=== PATIENT | female | born 1985 | race Caucasian/White ===

== ENCOUNTER 2018-07-21 17:44 | Inpatient (IN) | payer BC ==
[2018-07-21 18:16] VITALS: BMI 27.3
[2018-07-21] MEDS ORDERED: Lactated Ringer's 1,000 ML IV ONE (19:02)
[2018-07-21] MEDS ORDERED: Lactated Ringer's 1,000 ML IV SCH (19:15)
[2018-07-21 19:43] LABS: BASO # 0.1 K/uL (0.0-0.2); BASO % 0.6 % (0.0-2.0); EOS # 0.1 K/uL (0.0-0.7); HEMOGLOBIN 13.2 g/dL (12.0-16.0); LYMPH # 2.3 K/uL (1.0-4.3); LYMPH % 19.3 % (20.0-40.0); MEAN CORPUSCULAR HEMOGLOBIN 31.7 pg (27.0-31.0); MEAN CORPUSCULAR HGB CONC 34.5 g/dL (33.0-37.0); MEAN PLATELET VOLUME 9.7 fl (7.2-11.7); MONO # 0.8 K/uL (0.0-0.8); MONO % 6.6 % (0.0-10.0); NEUT # 8.5 K/uL (1.8-7.0); NEUT % 72.5 % (50.0-75.0); NRBC % 0.1 % (0.0-0.0); RBC 4.17 Mil/uL (3.80-5.20); WHITE BLOOD COUNT 11.7 K/uL (4.8-10.8)
--- NOTE | 2018-07-21 19:45 | OBADHP ---
Datetime: 07/21/2018 19:41 Admit Comment, IP Provider: 32-year-old at 38 weeks and 5 days gestational age presents to OB ED complaining of contractions. Just after arrival to OB ED, patient was grossly ruptured membranes o ccurring. Patient denies any vaginal bleeding. Patient reports good movement. records reviewed. Past medical history denies Past surgical history denies Medications vitamins No known drug allergies Obstetrical history Social history denies tobacco, drugs, alcohol Physical exam: Refer to physical exam findings Assessment: 32-year-old at 38 weeks gestational age with spontaneous rupture of membranes, early labor, GBS negative, category 1 heart tracing Plan: Admit to labor delivery for management Discussed plan with patient all patient questions answered. Pelvic Type - PN: Adequate Extremities - PN: Normal Abdomen - PN: Normal Back - PN: Normal Breast - PN: Normal Lungs - PN: Normal Heart - PN: Normal Thyroid - PN: Normal Neurologic - PN: Normal HEENT - PN: Normal General - PN: Normal FHR - Baseline A Provider: 120s Amniotic Fluid Color, Provider: Clear Membranes, Provider: Ruptured Contraction Comments Provider: q2-3min Comments, ACOG Physical Exam: Cephalic by exam Estimated weight 7/2 pounds by palpation IP Hx Assessment: The History has been Reviewed and is Current IP Chief Complaint: Uterine contractions; Suspected ruptured membranes NICHD Variability Prov Fetus A: Moderate 6-25bpm NICHD Accel Fetus A IP Provider: [id number] FHR Category Provider Fetus A: Category I NICHD Decel Fetus A IP Provider: None Dilatation, Provider: FT Effacement, Provider: 100 Station, Provider: 0 Genitourinary Exam: Normal DTRs - PN: Normal EGA AdmitDate IP: 38.5 IP Adm Impression: Term, intrauterine ; Active labor; Ruptured Membranes IP Admit Plan: Admit to unit; Initiate labor protocol
[2018-07-21] MEDS ORDERED: Lidocaine 1% MPF (30 ml) Inj ONE (22:48)
--- NOTE | 2018-07-22 00:02 | OBDS ---
MATERNAL INFORMATION Provider Comments: Uncomplicated Spontaneous Vaginal delivery of a viable female infant with BW of 3 725g and scores of 9 and 9. over a 1st degree periurethral laceration which was repaired with chromic with Good cosmesis. EBL- 300mls. Patient tolerated the procedure well. LABOR SUMMARY EDC: 07/30/2018 00:00 No. Babies in Womb: 1 Attempted: No LABOR INFORMATION Reason for Induction: Not Applicable Onset of Labor: 07/21/2018 11:00 Steroids Given: None Reason Steroids Not Administered: Not Applicable MEMBRANES Membranes Rupture Method: Spontaneous Rupture of Membranes: 07/21/2018 18:00 Amniotic Fluid Color: Clear Amniotic Fluid Amount: Large Amniotic Fluid Odor: Normal VAGINAL DELIVERY Sponge Count Correct: Yes Sharps Count Correct: Yes PRESENTATION/POSITION BABY A Presentation: Cephalic
[2018-07-22] MEDS ORDERED: Oxycodone/Acetaminophen 5/325 mg Tab PO PRN ×3 (01:22→02:47)
[2018-07-22] MEDS ORDERED: Benzocaine/Menthol SPRAY TOP PRN ×3 (01:22→02:47)
[2018-07-22 06:34] LABS: BASO % 0.3 % (0.0-2.0); EOS % 0.1 % (0.0-4.0); HEMOGLOBIN 11.4 g/dL (12.0-16.0); LYMPH # 1.6 K/uL (1.0-4.3); LYMPH % 8.4 % (20.0-40.0); MEAN CELL VOLUME 91.5 fl (81.0-99.0); MEAN CORPUSCULAR HEMOGLOBIN 31.1 pg (27.0-31.0); MONO # 1.3 K/uL (0.0-0.8); MONO % 6.7 % (0.0-10.0); NEUT # 16.4 K/uL (1.8-7.0); NEUT % 84.5 % (50.0-75.0); PLATELET COUNT 248 K/uL (130-400); RBC 3.68 Mil/uL (3.80-5.20); RED CELL DISTRIBUTION WIDTH 13.9 % (11.5-14.5); WHITE BLOOD COUNT 19.4 K/uL (4.8-10.8)
--- NOTE | 2018-07-22 10:54 | OBPPN ---
Datetime: 07/22/2018 10:50 PP Pain Prov: Within normal limits PP Nausea Prov: Denies PP Flatus Prov: Yes PP Breasts Prov: Normal PP Heart Prov: Normal PP Lungs Prov: Normal PP Abdomen/Uterus Prov: Normal PP Lochia Prov: Normal PP Vulva/Perineum Prov: Normal PP CVA Tenderness Prov: Normal PP Extremities Prov: Normal PP C/S Incision Prov: Not Applicable PP Progress Prov: Normal PP Comments Phys Exam Prov: Abd: Soft NT, BS- present UT- Firm PP Impression Prov: Normal progression PP Plan Prov: Continue present management PP Progress Note Prov: S/P , PPD #1 Clinically Stable. Plan: Continue with care. Vital Signs Provider PP: Reviewed
[2018-07-22 11:22] LABS: LYMPHOCYTE 11 % (20-50); MONOCYTE 4 % (0-10); NEUTROPHIL 85 % (42-75); TOTAL CELLS COUNTED 100
[2018-07-22 11:23] LABS: LARGE PLATELETS PRESENT; PLATELET ESTIMATE NORMAL (NORMAL); TOXIC GRANULATION PRESENT
[2018-07-22 11:24] LABS: SPHEROCYTES SLIGHT
[2018-07-22 11:25] LABS: HYPOCHROMIC SLIGHT
--- NOTE | 2018-07-23 11:06 | OBPPN ---
Datetime: 07/23/2018 11:03 PP Pain Prov: Within normal limits PP Nausea Prov: Denies PP Flatus Prov: Yes PP Breasts Prov: Normal PP Heart Prov: Normal PP Lungs Prov: Normal PP Abdomen/Uterus Prov: Normal PP Lochia Prov: Normal PP Vulva/Perineum Prov: Normal PP CVA Tenderness Prov: Normal PP Extremities Prov: Normal PP Comments Phys Exam Prov: Abd; Soft,NT , BS- present UT- Firm No calf tenderness B/L PP Impression Prov: Normal progression PP Plan Prov: Discharge PP Progress Note Prov: S/P , Clinically Stable Plan: D/c Home. Vital Signs Provider PP: Reviewed
--- NOTE | 2018-07-23 11:08 | OBDCSUM ---
Datetime: 07/23/2018 11:05 Discharged to, Provider: Home Follow up at, Provider: OB Primary Disch Instr Activity: Normal activity Disch Instr Diet: Regular Discharge Instructions, Provider: Routine instructions given Discharge Diagnosis, Provider: Term Delivered Discharge Time: 07/23/2018 11:05 Follow up in weeks, Provider: 4-6 weeks Disch Referrals: None Contraception discussed, Prov: Yes Discharge Comment, Provider: S/P , Clinically Stable Discharge Diagnosis Prov Other: S/P , Clinically Stable
[2018-07-23 18:06] VITALS: BP 114/68; PULSE 74; RESP 20; TEMP 98.2; O2SAT 98
== END 2018-07-23 13:40 | disposition home or self-care (01) | DRG 775 ==
LOC: H.EROB2 17:44 → H.L&D 19:03 → H.OB/GYN 07-22 02:00
PROVIDERS: ADMIT Obstetrics & Gynecology; ATTEND Obstetrics & Gynecology
PROC: 10E0XZZ Delivery of Products of Conception, External Approach (ICD-10-PCS; principal; 2018-07-21)
PROC: 0UQMXZZ Repair Vulva, External Approach (ICD-10-PCS; 2018-07-21)
PROC: 4A1HXCZ Monitoring of Products of Conception, Cardiac Rate, External Approach (ICD-10-PCS; 2018-07-21)
DX: O70.0 First degree perineal laceration during delivery (principal); Z37.0 Single live birth; Z3A.38 38 weeks gestation of pregnancy